=== PATIENT | male | born 1980 | race Caucasian/White ===

== ENCOUNTER 2022-03-10 20:54 | Emergency (ER) | payer SELFPAY ==
[2022-03-10 21:18] VITALS: BP 93/43
[2022-03-10 21:31] VITALS: BP 79/61
[2022-03-10 21:32] VITALS: BP 88/52
[2022-03-10 21:45] VITALS: BP 88/54
[2022-03-10 22:00] VITALS: BP 91/47
[2022-03-10 22:08] VITALS: BP 91/47
== END 2022-03-10 22:20 | disposition home or self-care (01) | DRG 605 ==
LOC: ED 20:54
PROC: 0HQGXZZ Repair Left Hand Skin, External Approach (ICD-10-PCS; principal; 2022-03-10)
DX: S61.211A Laceration without foreign body of left index finger without damage to nail, initial encounter (principal); W26.0XXA Contact with knife, initial encounter; E11.9 Type 2 diabetes mellitus without complications; Z79.84 Long term (current) use of oral hypoglycemic drugs

== ENCOUNTER 2022-11-26 17:16 | Emergency (ER) | payer SELFPAY ==
[~2022-11-26] VITALS: Ht 160 cm; Wt 76.0 kg
[2022-11-26] VITALS (8 sets, daily range): BP systolic 120–128; BP diastolic 72–85
[2022-11-26] MEDS ORDERED: NAPROXEN500 MG PO (18:48)
[2022-11-26] MEDS ORDERED: AMOXICILLIN500 MG PO (18:48)
== END 2022-11-26 19:04 | disposition home or self-care (01) | DRG 153 ==
LOC: ED 17:16
DX: J02.9 Acute pharyngitis, unspecified (principal); Z20.822 Contact with and (suspected) exposure to COVID-19

== ENCOUNTER 2022-12-03 14:05 | Emergency (ER) | payer SELFPAY ==
[~2022-12-03] VITALS: Ht 160 cm; Wt 75.7 kg
[~2022-12-03 14:05] MED LIST: AMOXICILLIN500 MG PO; NAPROXEN500 MG PO
[2022-12-03 15:14] LABS: BASO% 0.6 % (0-3); EOS% 2.2 % (0-8); HEMATOCRIT 40.2 % (39.0-50.0); IMMATURE GRANULOCYTES 0.4 % (0.0-5.0); LYMPH% 34.2 % (15-41); MEAN CELL VOLUME 89.1 fL CALC (80.0-100.0); MEAN CORPUSCULAR HGB CONC 34.8 g/dL CAL (32.0-36.0); MONO% 8.1 % (2-13); NEUT# 4.36 thou/uL (1.82-7.42); NEUT% 54.5 % (42-76); RED BLOOD COUNT 4.51 mill/uL (4.70-6.10); RED CELL DISTRI WIDTH 13.1 % (11.5-15.5)
[2022-12-03 15:25] LABS: ALBUMIN 4.3 g/dL (3.2-5.0); ALKALINE PHOSPHATASE 99 u/l (38-126); ANION GAP 11 (6-22 (CALC)); BILIRUBIN, TOTAL 0.7 mg/dL (0.2-1.3); BUN 14 mg/dL (9-20); BUN/CREATININE RATIO 16 (12-20 (CALC)); CARBON DIOXIDE 26 mmol/l (22-30); CHLORIDE 106 mmol/l (95-108); CREATININE 0.9 mg/dL (0.7-1.3); GFR FOR AFR.AMER. > 60 ML/MIN (>=60 (CALC)); GFR OTHER RACES > 60 ML/MIN (>=60 (CALC)); POTASSIUM 3.8 mmol/l (3.5-5.1); SGOT/AST 45 u/l (17-59); SODIUM 139 mmol/l (137-146); TOTAL PROTEIN 7.6 g/dL (6.3-8.2)
[2022-12-03] MEDS ORDERED: METHOCARBAMOL500 MG PO (17:25)
[2022-12-03] MEDS ORDERED: MOTRIN800 MG PO (17:25)
[2022-12-03 17:45] VITALS: BP 122/76
== END 2022-12-03 17:45 | disposition home or self-care (01) | DRG 552 ==
LOC: ED 14:05
PROVIDERS: Nurse Practitioner Family
DX: M54.2 Cervicalgia (principal); M25.511 Pain in right shoulder; M62.838 Other muscle spasm
CPT/HCPCS: Q9967